=== PATIENT | male | born 1985 | race African-American/Black ===

== ENCOUNTER 2018-03-15 11:59 | Emergency (ER) | payer SELFPAY ==
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
[2018-03-15 14:01] VITALS: TEMP 98.4
[2018-03-15 14:02] VITALS: BP 129/88; O2SAT 99
== END 2018-03-15 13:51 | disposition home or self-care (01) ==
LOC: ER 11:59
DX: S09.90XA Unspecified injury of head, initial encounter (principal); S16.1XXA Strain of muscle, fascia and tendon at neck level, initial encounter; V59.40XA Driver of pick-up truck or van injured in collision with unspecified motor vehicles in traffic accident, initial encounter
CPT/HCPCS: 70450; 72125; 99284

== ENCOUNTER 2018-05-06 06:25 | Emergency (ER) | payer SELFPAY ==
[2018-05-06] MEDS ORDERED: FLUORESCEIN SODIUM 0.6 MG/WRAP ONE (06:49)
[2018-05-06] MEDS ORDERED: TETRACAINE HCL 0.5% 2ML OPTH ONE (06:49)
--- NOTE | 2018-05-06 08:21 | EDPHYS ---
Physician Documentation [facility] Name: Manny Rubio Age: 32 yrs Sex: Male : 1985 Arrival Date: 05/06/2018 Time: 06:26 Bed 6 Private MD: ED Physician Scar George HPI: 05/06 07:00 This 32 yrs old Black Male presents to ER via Ambulatory with complaints of Eye pm1 Swelling, Eye Pain. 07:00 The patient sustained contusion, to the left eye, caused by hit with basketball to left pm1 eye and left side of face. Onset: The symptoms/episode began/occurred 4 day(s) ago. Aggravated by nothing. Alleviated by nothing. Associated signs and symptoms: Pertinent negatives: fever, headache, vision changes. Patient wears glasses. Severity of symptoms: in the emergency department the symptoms have improved. The patient has not experienced similar symptoms in the past. Patient was playing basketball and he was hit on the left side of face with the basketball. Presenting with left eye pain and swelling. Patient wears glasses only. No contacts. No visual changes or loss. Swelling to eyelids and redness to left eye. Historical: - Allergies: 06:46 No Known Allergies; fc - Home Meds: 06:46 None [Active]; fc - PMHx: 06:46 Asthma; fc - PSHx: 06:46 Appendectomy; fc - Immunization history:: Last tetanus immunization: unknown. - Social history:: Smoking status: Patient/guardian denies using tobacco. - Ebola Screening: : Patient negative for fever greater than or equal to 101.5 degrees Fahrenheit, and additional compatible Ebola Virus Disease symptoms Patient denies exposure to infectious person Patient denies travel to an Ebola-affected area in the 21 days before illness onset. ROS: 07:00 Constitutional: Negative for fever, chills, and weight loss, ENT: Negative for injury, pm1 pain, and discharge, Neck: Negative for injury, pain, and swelling, Cardiovascular: Negative for chest pain, palpitations, and edema, Respiratory: Negative for shortness of breath, cough, wheezing, and pleuritic chest pain, Abdomen/GI: Negative for abdominal pain, nausea, vomiting, diarrhea, and constipation. 07:00 Back: Negative for injury and pain, MS/Extremity: Negative for injury and deformity, Skin: Negative for injury, rash, and discoloration. 07:00 Neuro: Negative for headache, weakness, numbness, tingling, and seizure. 07:00 Eyes: Positive for pain, swelling, of the left eye, Negative for blurry vision, foreign body sensation, photophobia, vision loss, visual disturbance. 07:00 Neuro: Exam: 07:05 Visual Acuity: I have reviewed the nursing documentation. Visual acuity is within pm1 normal limits. 07:05 Constitutional: This is a well developed, well nourished patient who is awake, alert, and in no acute distress. Head/Face: Normocephalic, atraumatic. ENT: Nares patent. No nasal discharge, no septal abnormalities noted. Tympanic membranes are normal and external auditory canals are clear. Oropharynx with no redness, swelling, or masses, exudates, or evidence of obstruction, uvula midline. Mucous membranes moist. Neck: Trachea midline, no thyromegaly or masses palpated, and no cervical lymphadenopathy. Supple, full range of motion without nuchal rigidity, or vertebral point tenderness. No Meningismus. Chest/axilla: Normal chest wall appearance and motion. Nontender with no deformity. No lesions are appreciated. Cardiovascular: Regular rate and rhythm with a normal S1 and S2. No gallops, murmurs, or rubs. Normal PMI, no JVD. No pulse deficits. Respiratory: Lungs have equal breath sounds bilaterally, clear to auscultation and percussion. No rales, rhonchi or wheezes noted. No increased work of breathing, no retractions or nasal flaring. Abdomen/GI: Soft, non-tender, with normal bowel sounds. No distension or tympany. No guarding or rebound. No evidence of tenderness throughout. Back: No spinal tenderness. No costovertebral tenderness. Full range of motion. Skin: Warm, dry with normal turgor. Normal color with no rashes, no lesions, and no evidence of cellulitis. MS/ Extremity: Pulses equal, no cyanosis. Neurovascular intact. Full, normal range of motion. 07:05 Eyes: Periorbital structures: appear normal, no contusion, no swelling, Pupils: no acute changes, normal size, shape is regular, normal reaction to light, equal, round, and reactive to light and accomodation, Extraocular movements: intact throughout, Conjunctiva: injected, in the left eye, Corneas: abrasion, is not appreciated, foreign body, is not appreciated, a fluorescein strip employed to appreciate the findings, Sclera: abrasion, of the lateral aspect of conjunctiva of left eye, Anterior chamber: normal, no acute changes, no hyphema. Lids and lashes: slight swelling to upper eyelid. Lower eyelid normal. 07:05 Neuro: Orientation: is normal, Motor: is normal, moves all fours, strength is normal, Sensation: is normal, no obvious gross deficits, Gait: is steady, at a normal pace, without difficulty. Vital Signs: 06:30 BP 167 / 123; Pulse 60; Resp 20; Temp 98.7(O); Pulse Ox 98% on R/A; Weight 102.06 kg fc (R); Height 5 ft. 7 in. (170.18 cm) (R); Pain 10/10; 06:45 BP 152 / 97; Pulse 47; Resp 18 S; Pulse Ox 96% ; bs1 08:05 BP 134 / 85; Pulse 55; Resp 19; Pulse Ox 100% on R/A; la1 06:30 Body Mass Index 35.24 (102.06 kg, 170.18 cm) fc Visual Acuity: 07:03 Left Eye Visual acuity 20/20, Pupil size 4 mm, ; Right Eye Visual acuity 20/20, Pupil la1 size 4 mm, ; Both Eyes Visual acuity 20/20; With Lenses; MDM: 06:34 Patient medically screened. pm1 08:17 Data reviewed: vital signs. Data interpreted: Pulse oximetry: on room air is 100 %. pm1 Interpretation: normal. Counseling: I had a detailed discussion with the patient and/or guardian regarding: the historical points, exam findings, and any diagnostic results supporting the discharge/admit diagnosis, radiology results, the need for outpatient follow up, an opthalmologist, to return to the emergency department if symptoms worsen or persist or if there are any questions or concerns that arise at home. 05/06 07:24 Order name: CT Facial Bones W/O Con pm1 05/06 06:42 Order name: Visual Acuity; Complete Time: 06:48 pm1 05/06 06:42 Order name: Eye Tray; Complete Time: 06:48 pm1 05/06 06:42 Order name: Fluoresene Opth strip; Complete Time: 06:48 pm1 Administered Medications: 08:28 Drug: Tetracaine Drops 0.5 % 1 drops Route: Ophthalmic; Site: left eye; la 08:39 Drug: Gentamicin Drops 0.3 % 2 drops Route: Ophthalmic; Site: left eye; la1 08:44 Follow up: Response: No adverse reaction la1 08:40 Drug: Tetanus-Diphtheria Toxoid Adult 0.5 ml {Production Engineer: [email or web address]. Exp: 06/16/2020. Lot #: [id number]. } Route: IM; Site: right deltoid; 08:44 Follow up: Response: No adverse reaction la1 Disposition: 05/06/18 08:20 Discharged to Home. Impression: Injury of conjunctiva and corneal abrasion without foreign body, left eye. - Condition is Stable. - Discharge Instructions: Corneal Abrasion. - Prescriptions for Vigamox 0.5 % Ophthalmic Drops - instill 1 drop by OPHTHALMIC route every 8 hours for 7 days; 5 milliliter. - Medication Reconciliation Form, Thank You Letter, Antibiotic Education, Prescription Opioid Use form. - Follow up: Emergency Department; When: As needed; Reason: Worsening of condition. Follow up: Beatrice Gomez MD; When: 2 - 3 days; Reason: Recheck today's complaints, Continuance of care, Re-evaluation by your physician. - Problem is new. - Symptoms have improved. Addendum: 05/09/2018 00:34 Co-signature as Attending Physician, Scar George MD. g s Signatures: Dispatcher [employer] EDGA Teresa Rene RN RN Landry Carver RN RN la1 Cachorro Fairbanks, BACKGROUND CHECK COORDINATOR BACKGROUND CHECK COORDINATOR pm1 Scar George MD MD Corrections: (The following items were deleted from the chart) 05/06 08:47 08:20 05/06/2018 08:20 Discharged to Home. Impression: Injury of conjunctiva and la1 corneal abrasion without foreign body, left eye. Condition is Stable. Forms are Medication Reconciliation Form, Thank You Letter, Antibiotic Education, Prescription Opioid Use. Follow up: Emergency Department; When: As needed; Reason: Worsening of condition. Follow up: Beatrice Gomez; When: 2 - 3 days; Reason: Recheck today's complaints, Continuance of care, Re-evaluation by your physician. Problem is new. Symptoms have improved. pm1
--- NOTE | 2018-05-06 08:21 | ER ---
Nurse's Notes [facility] Name: Manny Rubio Age: 32 yrs Sex: Male : 1985 Arrival Date: 05/06/2018 Time: 06:26 Bed 6 Private MD: Diagnosis: Injury of conjunctiva and corneal abrasion without foreign body, left eye Presentation: 05/06 06:30 Presenting complaint: Patient states: that 4 days ago on Thursday he was playing basketball and got hit in the eye by the ball. Has had increasing pain and redness to left eye. Transition of care: patient was not received from another setting of care. Mechanism of Injury: hit in the left eye with basketball. The patient denies any loss of vision. Onset of symptoms was May 02, 2018. Risk Assessment: Do you want to hurt yourself or someone else? Patient reports no desire to harm self or others. Initial Sepsis Screen: Does the patient meet any 2 criteria? No. Patient's initial sepsis screen is negative. Does the patient have a suspected source of infection? No. Patient's initial sepsis screen is negative. Care prior to arrival: Medication(s) given: OTC eye drops. 06:30 Method Of Arrival: Ambulatory 06:30 Acuity: LEONEL 3 fc Historical: - Allergies: 06:46 No Known Allergies; - Home Meds: 06:46 None [Active]; fc - PMHx: 06:46 Asthma; fc - PSHx: 06:46 Appendectomy; - Immunization history:: Last tetanus immunization: unknown. - Social history:: Smoking status: Patient/guardian denies using tobacco. - Ebola Screening: : Patient negative for fever greater than or equal to 101.5 degrees Fahrenheit, and additional compatible Ebola Virus Disease symptoms Patient denies exposure to infectious person Patient denies travel to an Ebola-affected area in the 21 days before illness onset. Screenin:46 Abuse screen: Denies threats or abuse. Nutritional screening: No deficits noted. Tuberculosis screening: No symptoms or risk factors identified. Fall Risk None identified. Assessment: 06:49 General: Appears in no apparent distress. uncomfortable, Behavior is calm, cooperative, bs1 appropriate for age, flat. Pain: Complains of pain in left eye. Neuro: Level of Consciousness is awake, alert, obeys commands, Oriented to person, place, time, situation, Appropriate for age Gait is steady, Speech is normal, Facial symmetry appears normal, Pupils are PERRLA, Intact Denies blurred vision dizziness, numbness headache photophobia diplopia. Cardiovascular: Denies chest pain, shortness of breath, Heart tones S1 S2 present Capillary refill < 3 seconds Patient's skin is warm and dry. Respiratory: Airway is patent Trachea midline Respiratory effort is even, unlabored, Respiratory pattern is regular, symmetrical, Breath sounds are clear bilaterally. GI: No signs and/or symptoms were reported involving the gastrointestinal system. : No signs and/or symptoms were reported regarding the genitourinary system. EENT: Eyes are tearing on outer aspect of conjuctiva of left eye, iris of left eye and inner aspect of conjunctiva of left eye Sclera/Cornea are reddened in outer aspect of conjuctiva of left eye, iris of left eye and inner aspect of conjunctiva of left eye patient reports being hit by a basketball on Thursday, patients eye is noticeably red/swollen. patient denies any blurry vision in left eye. patient reports wearing eye glasses.. 06:57 Reassessment: Report given to ONESIMO Alatorre. Informed nurse that medications were prepared bs1 and given to TERRY Fairbanks. 08:05 Reassessment: Patient appears in no apparent distress at this time. No changes from la1 previously documented assessment. Patient and/or family updated on plan of care and expected duration. Pain level reassessed. Patient is alert, oriented x 3, equal unlabored respirations, skin warm/dry/pink. Vital Signs: 06:30 BP 167 / 123; Pulse 60; Resp 20; Temp 98.7(O); Pulse Ox 98% on R/A; Weight 102.06 kg fc (R); Height 5 ft. 7 in. (170.18 cm) (R); Pain 10/10; 06:45 BP 152 / 97; Pulse 47; Resp 18 S; Pulse Ox 96% ; bs1 08:05 BP 134 / 85; Pulse 55; Resp 19; Pulse Ox 100% on R/A; la1 06:30 Body Mass Index 35.24 (102.06 kg, 170.18 cm) Visual Acuity: 07:03 Left Eye Visual acuity 20/20, Pupil size 4 mm, ; Right Eye Visual acuity 20/20, Pupil la1 size 4 mm, ; Both Eyes Visual acuity 20/20; With Lenses; ED Course: 06:26 Patient arrived in ED. ds1 06:30 Arm band placed on Patient placed in an exam room, on a stretcher. fc 06:32 Cachorro Fairbanks NP is PHCP. pm1 06:32 Scar George MD is Attending Physician. pm1 06:45 Triage completed. fc 06:46 Patient has correct armband on for positive identification. Bed in low position. Call light in reach. 06:46 No provider procedures requiring assistance completed. fc 07:03 Landry Carver, ONESIMO is Primary Nurse. la1 07:38 Patient moved to NV via wheelchair. vr 07:39 CT completed. Patient tolerated procedure well. Patient moved back from NV. vr 07:41 CT Facial Bones W/O Con In Process Unspecified. EDMS 08:19 Beatrice Gomez MD is Referral Physician. pm1 08:43 Patient did not have IV access during this emergency room visit. la1 Administered Medications: 08:28 Drug: Tetracaine Drops 0.5 % 1 drops Route: Ophthalmic; Site: left eye; la1 08:39 Drug: Gentamicin Drops 0.3 % 2 drops Route: Ophthalmic; Site: left eye; la1 08:44 Follow up: Response: No adverse reaction la1 08:40 Drug: Tetanus-Diphtheria Toxoid Adult 0.5 ml {Supplier Quality Engineer: [employer]. Exp: la1 06/16/2020. Lot #: [id number]. } Route: IM; Site: right deltoid; 08:44 Follow up: Response: No adverse reaction la1 Outcome: 08:20 Discharge ordered by . pm1 08:43 Discharged to home ambulatory. la1 08:43 Condition: stable 08:43 Discharge instructions given to patient, Instructed on discharge instructions, follow up and referral plans. medication usage, Demonstrated understanding of instructions, follow-up care, medications, Prescriptions given X 1. 08:47 Patient left the ED. la1 Signatures: Dispatcher [employer] EDUT Teresa Rene RN RN Lina Shine ds1 Savanna Toledo vr Landry Carver RN RN la1 Cachorro Fairbanks NP REMEDIATION TECHNICIAN pm1 Gabby Kwok RN RN bs1 Corrections: (The following items were deleted from the chart) 06:58 06:57 Reassessment: Report given to ONESIMO Alatorre bs1 bs1
[2018-05-06] MEDS ORDERED: GENTAMICIN 0.3% OPTH DROP 5ML ONE (08:38)
[2018-05-06] MEDS ORDERED: TETANUS & DIPHTHERIA TOX,ADULT 0.5 ML VIAL ONE (08:39)
--- NOTE | 2018-05-06 08:49 | RAD REPORT ---
EXAM DESCRIPTION: CT - Facial Bones W/ Mpr - 05/06/2018 7:40 am CLINICAL HISTORY: Blunt force trauma to the right periorbital region 4 days earlier, worsening pain At the time of the study, developer programmer analyst system was non functioning. A verbal report was telephoned to the referring clinician. COMPARISON: None. TECHNIQUE: Axial 2 millimeter thick images of the facial bones were obtained with sagittal and coron al reconstruction imaging. All CT scans are performed using dose optimization technique as appropriate and may include automated exposure control or mA/KV adjustment according to patient size. FINDINGS: Mastoid air cells are clear. No skull base fracture. Trace mucosal thickening scattered in the paranasal sinuses. No air-fluid levels identified. No evidence for injury to the globe. The opti c nerve and extraocular muscles on the right have a normal appearance and are symmetric with the left . No significant periorbital contusion or edema changes. No air or foreign body. No abscess or draina ble fluid collection. No orbital or other facial bone fracture identifiable. IMPRESSION: CT facial study showing no significant bone, orbit or sinus finding.
[2018-05-06 08:50] VITALS: TEMP 98.7
[2018-05-06 08:52] VITALS: BP 134/85; O2SAT 100
== END 2018-05-06 08:47 | disposition home or self-care (01) ==
LOC: ER 06:25
DX: S05.02XA Injury of conjunctiva and corneal abrasion without foreign body, left eye, initial encounter (principal); W21.05XA Struck by basketball, initial encounter; Y93.67 Activity, basketball; Y92.310 Basketball court as the place of occurrence of the external cause; J45.909 Unspecified asthma, uncomplicated; Z23 Encounter for immunization
CPT/HCPCS: 70486; 76377; 90714; 99284